=== PATIENT | male | born 1995 | race Caucasian/White ===

== ENCOUNTER 2023-07-20 12:52 | Emergency (ER) | payer MEDICAID ==
[~2023-07-20] VITALS: Ht 172.7 cm; Wt 91.0 kg
[2023-07-20 13:01] VITALS: BP 138/86; PULSE 88; RESP 16; TEMP 97.2; O2SAT 99
[2023-07-20] MEDS: LORAZEPAM 1MG TABLET PO ONE (14:28)
== END 2023-07-20 16:28 | disposition home or self-care (01) ==
LOC: ER 12:52
DX: R45.851 Suicidal ideations (principal); T50.906A Underdosing of unspecified drugs, medicaments and biological substances, initial encounter; J45.909 Unspecified asthma, uncomplicated; Y92.89 Other specified places as the place of occurrence of the external cause
CPT/HCPCS: 99283